=== PATIENT | male | born 1995 ===

== ENCOUNTER 2024-08-06 11:31 | Day surgery (SDC) | payer OTHER ==
[~2024-08-06] VITALS: Ht 182.9 cm; Wt 106.2 kg
[~2024-08-06 11:31] MED LIST: Lactated Ringer's 1,000 ML IV ONE
[2024-08-06] MEDS ORDERED: CeFAZolin Sodium 2,000 MG VIAL ONE (11:43)
[2024-08-06] MEDS ORDERED: Lactated Ringer's 1,000 ML IV ONE (12:38)
[2024-08-06] MEDS ORDERED: propofoL 20 ML IV ONE (13:33)
[2024-08-06] MEDS ORDERED: FentaNYL Citrate 50 MCG/ML 2 ML Injection ONE (13:33)
[2024-08-06] MEDS ORDERED: Dexamethasone Sod Phos 10 MG/ML 1ML VIAL ONE (13:42)
[2024-08-06] MEDS ORDERED: Ondansetron HCl 2 MG / ML 2ML Vial ONE (13:42)
[2024-08-06] MEDS ORDERED: Lidocaine HCl 2% 10 ML SDA INJ ONE (13:59)
[2024-08-06] MEDS ORDERED: HYDROcodone 5-APAP 325 TAB ONE (15:11)
--- NOTE | 2024-08-06 16:03 | NUR ---
08/06/24 1603 Talon Sotelo PT REPROTED 11/01 PAIN UPON D/C. FLACC 0-09/03. HE DESCRIBED PAIN TOLERABLE AND DENIED NAUSEA. PT EXPRESSED READINESS TO RETURN HOME.
== END 2024-08-06 15:56 | disposition home or self-care (01) ==
LOC: ORSCSDS 11:31
PROVIDERS: Orthopaedic Surgery
PROC: 0PSP04Z Reposition Right Metacarpal with Internal Fixation Device, Open Approach (ICD-10-PCS; principal; 2024-08-06 14:15)
DX: S62.324A Displaced fracture of shaft of fourth metacarpal bone, right hand, initial encounter for closed fracture (principal); F17.220 Nicotine dependence, chewing tobacco, uncomplicated; W18.30XA Fall on same level, unspecified, initial encounter
CPT/HCPCS: A9270; C1713; C1776; J0690; J1100; J2003; J2405; J2704; J3010; J7120